=== PATIENT | female | born 1985 | race Caucasian/White ===

== ENCOUNTER 2017-06-24 01:22 | Emergency (ER) | payer SELFPAY ==
[2017-06-24 01:30] VITALS: BP 128/86
[2017-06-24] MEDS ORDERED: NEOMY SULF/POLYMYX B SULF/HC OTIC SUSP 10 ML AD ONE (01:42)
[2017-06-24] MEDS ORDERED: TRAMADOL HCL 50 MG TABLET PO ONE (01:44)
--- NOTE | 2017-06-24 01:44 | ER Document Report ---
ED General - General Chief Complaint: Ear Pain Stated Complaint: EAR PAIN Time Seen by Provider: 06/24/17 01:41 TRAVEL OUTSIDE OF THE [place] IN LAST 30 DAYS: No - HPI Notes: 32-year-old female presents with left-sided ear pain. Gradual onset and severe over the last day and a half. No swimming, use of earplugs. Throbbing burning aching, nonradiating. No history of diabetes. No other modifying factors, no other associated symptoms, no other provocative or palliative factors. - Related Data Allergies/Adverse Reactions: No Known Allergies Allergy (Unverified 06/24/17 01:30) Past Medical History - Social History Smoking Status: Never Smoker Frequency of alcohol use: None Drug Abuse: None Family History: Reviewed & Not Pertinent Patient has suicidal ideation: No Patient has homicidal ideation: No - Medical History Medical History: Negative Renal/ Medical History: Denies: Hx Peritoneal Dialysis Review of Systems - Review of Systems Notes: Review of systems as in history of present illness otherwise negative Physical Exam - Vital signs Vitals: Temp Pulse Resp BP Pulse Ox 97.9 F 90 18 128/86 H 98 06/24/17 01:23 06/24/17 01:06/24/17 01:06/24/17 01:23 06/24/17 01:23 - Notes Notes: General: Well devloped, no acute distress. HEENT: Normocephalic, atraumatic. Pupils equal round reactive to light. Mucosa moist. No JVD. left external canal shows erythema and debris and edema. Chest: No trauma, normal excursion. Respiratory: Good air exchange, normal excursion. Cardiac: Regular rhythm Abdomen: Soft, benign. Nondistended. Back: No asymmetry or gross abnormality. Motor: Grossly normal power and tone. Neurologic: Alert, nonfocal. Vascular: Well perfused Skin: No petechiae or purpura Course - Re-evaluation Re-evalutation: Well-appearing female with left-sided otitis externa, given a dose of an prescription of Cortisporin Otic drops, tramadol for pain, outpatient follow-up - Vital Signs Vital signs: Temp Pulse Resp BP Pulse Ox 97.9 F 90 18 128/86 H 98 06/24/17 01:23 06/24/17 01:06/24/17 01:06/24/17 01:23 06/24/17 01:23 Discharge - Discharge Clinical Impression: Otitis externa Qualifiers: Otitis externa type: swimmer's ear Chronicity: acute Laterality: left Qualified Code(s): H60.332 - Swimmer's ear, left ear Condition: Good Disposition: HOME, SELF-CARE Instructions: Use of Ear Drops ([facility]), Otitis Externa ([facility]) Prescriptions: Neomy Sulf/Polymyx B Sulf/Hc [Cortisporin Otic Susp] 4 drop 5XD #100 bottle
== END 2017-06-24 01:53 | disposition home or self-care (01) ==
LOC: ER 01:22
DX: H60.332 Swimmer's ear, left ear (principal); H92.02 Otalgia, left ear
CPT/HCPCS: 99282; J3490

== ENCOUNTER 2017-06-26 12:15 | Emergency (ER) | payer SELFPAY ==
[2017-06-26 12:19] VITALS: BP 118/79
[2017-06-26] MEDS ORDERED: OXYCODONE-ACETAMINOPHEN 5-325 MG TABLET PO ONE (12:50)
[2017-06-26] MEDS ORDERED: CIPROFLOXACIN HCL/DEXAMETH OTIC DROP 7.5 ML AS ONE (13:40)
[2017-06-26] MEDS ORDERED: HYDROCODONE/ACETAMINOPHEN 5-325 MG (6 TAB/ER DISP) PO PRN (13:40)
--- NOTE | 2017-06-26 13:41 | ER Document Report ---
ED ENT - General Chief Complaint: Ear Pain Stated Complaint: EAR PAIN Time Seen by Provider: 06/26/17 12:34 Mode of Arrival: Ambulatory Information source: Patient Notes: Patient is a 32-year-old female who presents to the ER today for left ear pain continued since she was seen here 2 days ago and diagnosed with otitis externa, given polymyxin with hydrocortisone eardrops that she has been applying. Patient states that the eardrops "do not feel like they are going in all the way." Patient denies any runny nose, cough, fever, chills or pain to the other ear. TRAVEL OUTSIDE OF THE [place] IN LAST 30 DAYS: No - Related Data Allergies/Adverse Reactions: No Known Allergies Allergy (Verified 06/26/17 12:15) Past Medical History - General Information source: Patient - Social History Smoking Status: Unknown if Ever Smoked Family History: Reviewed & Not Pertinent Patient has suicidal ideation: No Patient has homicidal ideation: No Renal/ Medical History: Denies: Hx Peritoneal Dialysis Review of Systems - Review of Systems Constitutional: No symptoms reported EENT: See HPI Cardiovascular: No symptoms reported Respiratory: No symptoms reported Gastrointestinal: No symptoms reported Genitourinary: No symptoms reported Female Genitourinary: No symptoms reported Musculoskeletal: No symptoms reported Skin: No symptoms reported Hematologic/Lymphatic: No symptoms reported Neurological/Psychological: No symptoms reported Physical Exam - Vital signs Vitals: Temp Pulse Resp BP Pulse Ox 98.1 F 89 16 118/79 99 06/26/17 12:18 06/26/17 12:18 06/26/17 12:18 06/26/17 12:18 06/26/17 12:18 - Notes Notes: PHYSICAL EXAMINATION: GENERAL: Holding left ear, obviously in pain, in no acute distress. HEAD: Atraumatic, normocephalic. EYES: Pupils equal round and reactive to light, extraocular movements intact, sclera anicteric, conjunctiva are normal. ENT: Left ear canal erythematous and edematous, cannot visualize TM, right ear canal without erythema or foreign body, right TM pearly sarkar with good bony landmarks, nares patent, oropharynx clear without exudates. Moist mucous membranes. NECK: Normal range of motion, supple without lymphadenopathy LUNGS: CTAB and equal. No wheezes rales or rhonchi. HEART: Regular rate and rhythm without murmurs EXTREMITIES: Normal range of motion, no pitting edema. No cyanosis. NEUROLOGICAL: Cranial nerves grossly intact. Normal sensory/motor exams. PSYCH: Normal mood, normal affect. SKIN: Warm, Dry, normal turgor, no rashes or lesions noted Course - Re-evaluation Re-evalutation: 06/26/17 16:38 wick was placed to the left ear canal without complication, patient tolerated well. Antibiotic eardrops were changed to Ciprodex, patient sent home with bottle. - Vital Signs Vital signs: Temp Pulse Resp BP Pulse Ox 98.1 F 89 16 118/79 99 06/26/17 12:18 06/26/17 12:18 06/26/17 12:18 06/26/17 12:18 06/26/17 12:18 Discharge - Discharge Clinical Impression: Otitis externa Qualifiers: Otitis externa type: unspecified type Chronicity: acute Laterality: left Qualified Code(s): H60.502 - Unspecified acute noninfective otitis externa, left ear Condition: Stable Disposition: HOME, SELF-CARE Additional Instructions: Return immediately for any new or worsening symptoms. Follow up with primary care provider, call tomorrow to make followup appointment. Forms: Return to Work
== END 2017-06-26 14:12 | disposition home or self-care (01) ==
LOC: ER 12:15
DX: H60.502 Unspecified acute noninfective otitis externa, left ear (principal); H92.02 Otalgia, left ear
CPT/HCPCS: 99282; J3490